=== PATIENT | female | born 1995 | race Caucasian/White ===

== ENCOUNTER 2018-04-28 21:14 | Emergency (ER) | payer OTHER ==
[~2018-04-28] VITALS: Ht 185.4 cm; Wt 127.3 kg
[2018-04-28] MEDS ORDERED: normal saline 1000ML IV soln IVB ONE (22:15)
[2018-04-28] MEDS ORDERED: acetaminophen 325mg tablet PO ONE (22:15)
[2018-04-28] MEDS ORDERED: ketorolac trometh. 30mg/ml inj. IV ONE (22:15)
[2018-04-28] MEDS ORDERED: proCHLORperazine 10 MG/2 ml inj IV ONE (22:15)
[2018-04-28 23:36] VITALS: BP 140/85
== END 2018-04-28 23:37 | disposition home or self-care (01) ==
LOC: EDSEX 21:15 → ER 21:15
DX: R51 Headache (principal); R11.0 Nausea; R42 Dizziness and giddiness; Z88.8 Allergy status to other drugs, medicaments and biological substances
CPT/HCPCS: 96361; 96374; 96375; 99284; J0780; J1885; J7030

== ENCOUNTER 2018-05-02 13:12 | Emergency (ER) | payer OTHER ==
[~2018-05-02] VITALS: Ht 185.4 cm; Wt 127.3 kg
[2018-05-02] MEDS ORDERED: NORMAL SALINE IV ONE (13:55)
[2018-05-02] MEDS ORDERED: KETAMINE IV ONE (13:55)
[2018-05-02] MEDS ORDERED: HYDROcodone/acetaminophen 10/325mg tab PO ONE (14:35)
[2018-05-02] MEDS ORDERED: ONDA8TAB6 PO (14:37)
[2018-05-02] MEDS ORDERED: HYDR-565 PO (14:37)
[2018-05-02] MEDS: ondansetron/PF 4mg/2ml inj IV ONE ×2 (14:51→14:54)
[2018-05-02 15:11] VITALS: BP 118/74
== END 2018-05-02 15:07 | disposition home or self-care (01) ==
LOC: ER 13:13
DX: S09.90XA Unspecified injury of head, initial encounter (principal); G44.311 Acute post-traumatic headache, intractable; Z88.8 Allergy status to other drugs, medicaments and biological substances; Z79.899 Other long term (current) drug therapy; W22.8XXA Striking against or struck by other objects, initial encounter; Y93.89 Activity, other specified; Y92.89 Other specified places as the place of occurrence of the external cause; Y99.8 Other external cause status
CPT/HCPCS: 70450; 96374; 96375; 99284; J2405; J7030

== ENCOUNTER 2018-12-16 10:43 | Emergency (ER) | payer OTHER ==
[~2018-12-16] VITALS: Ht 185.4 cm; Wt 138.0 kg
[~2018-12-16 10:43] MED LIST: ONDA8TAB6 PO
[2018-12-16 10:46] VITALS: BP 155/93
[2018-12-16] MEDS ORDERED: glycerin ADULT rectal suppository RC ONE (11:50)
[2018-12-16 12:19] LABS: BASOPHILS % (AUTO) 0.4 % (0-1); EOSINOPHILS # (AUTO) 0.1 X10'3 (0-0.9); EOSINOPHILS % (AUTO) 2.3 % (0-6); HEMATOCRIT 38.8 % (35.0-45.0); HEMOGLOBIN 13.2 g/dl (12.0-16.0); LYMPHOCYTES # (AUTO) 1.8 X10'3 (1.1-4.8); LYMPHOCYTES % (AUTO) 26.9 % (21-51); MEAN CORPUSCULAR VOLUME 79.4 FL (78-98); MONOCYTES # (AUTO) 0.5 X10'3 (0-0.9); MONOCYTES % (AUTO) 7.9 % (2-12); NEUTROPHILS # (AUTO) 4.1 X10'3 (1.8-7.7); NEUTROPHILS % (AUTO) 62.5 % (42-75); PLATELET COUNT 269 X10'3 (140-440); RED BLOOD COUNT 4.88 X10'6 (4.20-5.60); RED CELL DISTRIBUTION WIDTH 14.7 % (11.5-14.5); WHITE BLOOD COUNT 6.5 X10'3 (4.5-11.0)
[2018-12-16] MEDS ORDERED: SUMAtriptan succ. 6 MG/0.5ml vial SQ ONE (12:25)
[2018-12-16] MEDS ORDERED: diphenhydrAMINE 50 mg/ml inj IM ONE (12:25)
[2018-12-16] MEDS ORDERED: dexamethasone sod phosphate 10mg/ml inj IM STA (12:25)
[2018-12-16] MEDS ORDERED: proCHLORperazine 10 MG/2 ml inj IM ONE (12:25)
[2018-12-16 12:27] LABS: ALBUMIN 3.7 G/DL (3.4-5.0); ANION GAP 12 (8-16); BLOOD UREA NITROGEN 11 MG/DL (7-18); BUN/CREATININE RATIO 12.8 (6.6-38.0); CALCIUM 8.5 MG/DL (8.5-10.1); CHLORIDE 107 MMOL/L (99-107); CREATININE 0.86 MG/DL (0.40-0.90); GLUCOSE 113 MG/DL (70-104); POTASSIUM 3.7 MMOL/L (3.5-5.1); SODIUM 142 MMOL/L (135-145); TOTAL CARBON DIOXIDE 22.7 MMOL/L (24-32); eGFR 80 ML/MIN
== END 2018-12-16 13:24 | disposition home or self-care (01) ==
LOC: ER 10:44
DX: G43.909 Migraine, unspecified, not intractable, without status migrainosus (principal); Z88.8 Allergy status to other drugs, medicaments and biological substances; Z79.899 Other long term (current) drug therapy
CPT/HCPCS: 36415; 80048; 85025; 96372; 99283; J0780; J1100; J1200; J3030